=== PATIENT | male | born 1950 | race Two or more races ===

== ENCOUNTER 2022-06-15 11:00 | Outpatient (CLI) | payer MEDICARE, OTHER | END 2022-06-15 23:59 | disposition home or self-care (01) | LOC: WOU 11:00 | PROVIDERS: ATTEND Podiatrist Foot & Ankle Surgery | DX: E11.52 Type 2 diabetes mellitus with diabetic peripheral angiopathy with gangrene (principal); E11.22 Type 2 diabetes mellitus with diabetic chronic kidney disease; I12.0 Hypertensive chronic kidney disease with stage 5 chronic kidney disease or end stage renal disease; I96 Gangrene, not elsewhere classified; E11.621 Type 2 diabetes mellitus with foot ulcer; N18.6 End stage renal disease; Z99.2 Dependence on renal dialysis; Z87.891 Personal history of nicotine dependence; Z79.4 Long term (current) use of insulin; T86.12 Kidney transplant failure; L97.528 Non-pressure chronic ulcer of other part of left foot with other specified severity; L97.512 Non-pressure chronic ulcer of other part of right foot with fat layer exposed; L97.518 Non-pressure chronic ulcer of other part of right foot with other specified severity; M79.672 Pain in left foot | CPT/HCPCS: G0463 ==

== ENCOUNTER 2022-07-18 13:39 | Outpatient (CLI) | payer MEDICARE, OTHER | END 2022-07-18 23:59 | disposition home or self-care (01) | LOC: WOU 13:39 | PROVIDERS: ATTEND Podiatrist Foot & Ankle Surgery | DX: E11.52 Type 2 diabetes mellitus with diabetic peripheral angiopathy with gangrene (principal); E11.22 Type 2 diabetes mellitus with diabetic chronic kidney disease; I12.0 Hypertensive chronic kidney disease with stage 5 chronic kidney disease or end stage renal disease; E11.42 Type 2 diabetes mellitus with diabetic polyneuropathy; E11.621 Type 2 diabetes mellitus with foot ulcer; L97.528 Non-pressure chronic ulcer of other part of left foot with other specified severity; L97.512 Non-pressure chronic ulcer of other part of right foot with fat layer exposed; L97.518 Non-pressure chronic ulcer of other part of right foot with other specified severity; N18.6 End stage renal disease; Z99.2 Dependence on renal dialysis; Z87.891 Personal history of nicotine dependence; Z79.4 Long term (current) use of insulin; T86.12 Kidney transplant failure; I70.203 Unspecified atherosclerosis of native arteries of extremities, bilateral legs; M79.672 Pain in left foot | CPT/HCPCS: G0463 ==

== ENCOUNTER 2022-10-05 14:40 | Outpatient (CLI) | payer MEDICARE, OTHER | END 2022-10-05 23:59 | disposition home or self-care (01) | LOC: RAD 14:40 | PROVIDERS: ATTEND Internal Medicine | DX: J18.8 Other pneumonia, unspecified organism (principal); J98.11 Atelectasis; I51.7 Cardiomegaly; J81.1 Chronic pulmonary edema; I70.0 Atherosclerosis of aorta | CPT/HCPCS: 71045-TC ==